=== PATIENT | female | born 2000 | race Caucasian/White ===

== ENCOUNTER → 2023-08-13 08:59 | Outpatient (REF) | payer OTHER, SELFPAY | LOC: RCS 08:59 | PROVIDERS: ATTENDING PHYSICIAN Nurse Practitioner Family | DX: R01.1 Cardiac murmur, unspecified (principal) | CPT/HCPCS: 93306 ==

== ENCOUNTER 2025-05-14 20:10 | Emergency (ER) | payer OTHER, SELFPAY ==
[2025-05-14 20:18] VITALS: BP 139/90
[2025-05-14 20:56] LABS: Hematocrit 41.8 % (37.0-47.0); Hemoglobin 14.5 g/dL (12.0-16.0); Mean Corp Hgb Conc. 34.7 g/dL (33.0-37.0); Mean Corpuscular Volume 84.6 fL (81.0-99.0); Nucleated Red Blood Cells % 0 %; Platelet Count 237 10^3/uL (130-400); Red Cell Dist. Width 11.9 % (11.5-14.5)
[2025-05-14 21:08] LABS: HCG, Serum Qualitative Screen Negative
[2025-05-14 21:17] LABS: ALT (SGPT) 21 U/L (0-35); AST (SGOT) 18 U/L (14-36); Albumin 4.8 g/dl (3.5-5.0); Alkaline Phosphatase 45 U/L (38-126); Blood Urea Nitrogen 8 mg/dl (7-17); Calcium 9.3 mg/dl (8.4-10.2); Carbon Dioxide 25 mmol/L (22-30); Chloride 104 mmol/L (98-107); Glucose 89 mg/dl (70-99); Potassium 3.7 mmol/L (3.5-5.1); Sodium 139 mmol/L (135-145); Total Protein 8.2 g/dl (6.3-8.2); eGFR > 60.00
--- NOTE | 2025-05-14 23:46 | ED.GENMED ---
History of Present Illness
General
Chief Complaint: Abdominal Pain
Source: patient and family
Time Seen by Provider: 05/14/25 22:14
History of Present Illness
History of Present Illness:
25-year-old female with past medical history of dysautonomia, ADHD, chronic intermittent abdominal pain, endometriosis presenting to the emergency department for sudden onset of generalized abdominal pain that started around 6:00 tonight, severe,
did not take anything for the pain but notes that at time of my exam symptoms seem to be a little bit improved. There is no associated nausea, vomiting, bowel changes or urinary symptoms. Patient has been worked up extensively as an outpatient
with previous CT scans, ultrasounds, HIDA scans, upper and lower endoscopy without any abnormalities found. Patient has seen 2 separate GI specialists, one of the GI specialist told her she might have IBS. Patient did state that the pain tonight
was a little bit more intense than usual and more generalized but overall not atypical for her pain.
Past History
Past History
ED Past Medical History: Other (amps, Ovarian cyst); Negative Asthma, HTN, Hypercholesterolemia or NIDDM
ED Past Surgical History: None
Social History
Tobacco: Non-smoker
Alcohol: Occasional
Drug: None
Personal: Single
Living: with family
Employment: Employed
Review of Systems
Review of Systems
All Other Systems: ROS reviewed and negative except as documented in HPI and ROS
Phy Exam
Physical Exam
Physical Exam:
GENERAL: Alert , in no apparent distress
EYE: clear conjunctiva b/l
HEAD: NCAT
ENT: o/p clr, mmm.
CARDIAC: Regular rate and rhythm .
LUNGS: Clear breath sounds bilaterally, no acute respiratory distress, no wheezes/rales/rhonchi
ABDOMEN: Soft, generally tender but nonfocal, no r/g, no cvat, negative Disla sign, no tenderness at McBurney's point
NEUROLOGICAL: Alert and oriented
SKIN: Warm and dry, skin intact.
MUSCULOSKELETAL: No edema, well perfused.
PSYCH: Normal and appropriate interaction.
Scores
Heart Failure Risk
Heart Failure Risk Score: Not Applicable
Heart Score for Chest Pain Patients
STEMI patient?: Not applicable
Withdrawal Assessment of Alcohol
Withdrawal Assessment Completed?: Not applicable
Course
Orders/Labs/Results
Orders:
Orders
05/14/25 20:21
Electrocardiogram (*1) Urgent
Reason for Study: Chest Pain
EKG- Treatment ONCE
Urinalysis Reflex To Culture Urgent
Date Specimen was Collected: 05/14/25
Time Specimen was Collected: 20:21
Test Result ONCE
05/14/25 20:40
Complete Blood Count/With Diff Urgent
Comprehensive Metabolic Panel Urgent
HCG, Serum Qualitative Screen Urgent
05/14/25 23:15
Dicyclomine [Bentyl] 20 mg PO NOW STA
05/15/25 00:22
Urine Microscopic Reflex Cult Urgent
Abnormal Lab Results
05/15/25
00:22
Urine Albumin (Reflex) 1+ A
(Neg - Trace)
05/14/25 20:40
05/14/25 20:40
Vital Signs
Initial and Last Documented VS:
Initial Vital Signs
Temp Pulse Resp BP Pulse Ox
98.1 F 88 19 139/90 98
05/14/25 20:18 05/14/25 20:18 05/14/25 20:18 05/14/25 20:18 05/14/25 20:18
Last Documented Vital Signs
Temp Pulse Resp BP Pulse Ox
98.1 F 68 16 135/70 100
05/14/25 20:18 05/15/25 00:25 05/15/25 00:25 05/15/25 00:25 05/15/25 00:25
MDM/Problems Addressed
Differential Diagnosis Includes:
GERD
Gastritis
PUD
Pancreatitis
Appy
Choley
Colitis
Exacerbation of chronic pain
MDM/Problems Addressed:
25-year-old female presenting to the ER for evaluation of exacerbation of her chronic abdominal pain, at time of my exam symptoms are mostly improved. Patient is in no acute distress. We had a long discussion about workup that was already
completed with her labs and that all her tests have come back without any abnormalities. Given she has had extensive workup for this including emergent imaging in the past we ultimately decided to forego imaging and elect for treatment with p.o.
medications and reassessment. We did discuss return precautions to the emergency department as well as continued outpatient follow-up with GI. Anticipate discharge home pending reevaluation.
*Pulse Oximetry
SaO2: 98
Oxygen Mode of Delivery: Room air
Patient hypoxic: no
*Critical Care Note
Total Time (30-74mins, 75-104mins- exclusive of procedures): Not Applicable
Data Reviewed
Review of Other/Old Records Reveals: Labs, Records and Testing
Patient Management
Escalation/DeEscalation of care consider admission/obs:
Patient with improved symptoms following dicyclomine. Feels comfortable being discharged home. Prescription for similar was sent to pharmacy. Aware of return precautions. Stable for discharge.
ED Attending Note
-
Portions of this chart may have been created with voice recognition software.� Occasional wrong word or��sound alike� substitutions may have occurred due to the inherent limitations of voice recognition software.
Discharge Plan
Departure
Patient Disposition: Home (Routine Discharge)
Date of Disposition: 05/15/25
Time of Disposition: 00:20
Patient with high blood pressure during this ER visit?: Yes
Discharge Problem:
Abdominal pain
Instructions: Abdominal Pain
Prescriptions:
New
dicyclomine 10 mg capsule
10 mg PO BID Qty: 20 0RF
No Action
L.acidoph,paracasei,B.animalis 1 EACH capsule
1 ea PO DAILY
rizatriptan [Maxalt] 10 MG tablet
10 mg PO PRN PRN (Reason: migraines)
dextroamphetamine-amphetamine [Adderall XR] 10 MG capsule,extended release 24hr
10 mg PO DAILY
Ethinyl Estradiol/Drospirenone [Vestura 3 Mg-0.02 Mg Tablet] 1 EACH Tablet
1 tab PO DAILY
Referrals:
Ivette Fields CRNP [Family Provider, Family Practice]
Stand Alone Forms: Return to Work
Interventions
Interventions:
*Risk Screen - Suicide Last Done: 05/14/25 20:20
*General Assessment Last Done: 05/14/25 20:20
*Neglect/Abuse Screening Last Done: 05/14/25 20:20
*ED COVID-19 Vaccine History Last Done: 05/14/25 20:20
*ED Influenza Vaccine History Last Done: 05/14/25 20:20
*Nursing Disposition Last Done: 05/15/25 00:28
GV-Ihnqns-Neyryzzjep Assessment Last Done: 05/14/25 22:00
Discharge Date and Time
Discharge Date/Time: 05/15/25 00:28
Print Language: [email or web address]
[2025-05-14] MEDS: BENTYL 20 MG PO (23:50)
[2025-05-15 00:25] VITALS: BP 135/70
[2025-05-15 00:40] LABS: Urine Character Clear (Clear)
[2025-05-15 00:57] LABS: Urine Red Blood Cell 0-2 /HPF (0-2); Urine Squamous Cell 0-2 /LPF (Few); Urine White Cell 0-2 /HPF (0-5)
== END 2025-05-15 00:28 | disposition home or self-care (01) ==
LOC: EMR 20:10
PROVIDERS: Emergency Medicine; EMERGENCY PHYSICIAN Student in an Organized Health Care Education/Training Program; FAMILY PHYSICIAN Nurse Practitioner Family
DX: R10.84 Generalized abdominal pain (principal); Z87.42 Personal history of other diseases of the female genital tract
CPT/HCPCS: 99283; 80053; 81003; 81015; 84703; 85025